=== PATIENT | male | born 1980 | race American Indian/Alaskan Native ===

== ENCOUNTER 2017-07-10 12:04 | Emergency (ER) | payer SELFPAY ==
[2017-07-10] MEDS ORDERED: PERCOCET 5/325 PO ONE ×2 (15:54→17:00)
[2017-07-10] MEDS ORDERED: FLEXERIL PO ONE (15:54)
--- NOTE | 2017-07-10 15:54 | Emergency Department Report ---
ED Back Pain/Injury HPI - General Chief Complaint: Back Pain/Injury Stated Complaint: BACK PAIN Time Seen by Provider: 07/10/17 15:29 Source: patient, family Mode of arrival: Ambulatory Limitations: No Limitations - History of Present Illness Initial Comments: Patient here complaining of lower back pain since last night. He said the pain is 8 out of 10 and feels sharp. She has a history of lower back injury with back pain and says he has back pain on and off yesterday he was doing some work and he think he reinjured his back. Denies any nausea vomiting, fever chills, urinary burning, frequency or urgency. Denies numbness hurting into extremities or loss of bowel or bladder function. He is also complaining of lump to his lower back that has been ongoing for 2 years without any medical attention. He said he took [id number] pain medication but it did not help his pain. MD Complaint: back pain -: Last night Similar Symptoms Previously: Yes Place: home Radiation: none Severity: severe Severity scale (0 -10): 8 Quality: sharp Consistency: constant Improves With: immobilization Worsens With: walking Context: turning/twisting, bending Associated Symptoms: other (Lump lower back). denies: confusion, weakness, chest pain, numbness, difficulty walking, cough, difficulty urinating, diaphoresis, incontinence, fever/chills, constipation, headaches, abdominal pain , loss of appetite, malaise, nausea/vomiting, rash, seizure, shortness of breath , syncope Treatments Prior to Arrival: NSAIDS - Related Data Previous Rx's Medication Instructions Recorded Last Taken Type Cyclobenzaprine [Flexeril] 10 mg PO Q8H PRN #15 tablet 07/10/17 Unknown Rx traMADol [Ultram] 50 mg PO Q6HR PRN #20 tablet 07/10/17 Unknown Rx Allergies Allergy/AdvReac Type Severity Reaction Status Date / Time No Known Allergies Allergy Unverified 07/10/17 12:40 ED Review of Systems ROS: Stated complaint: BACK PAIN Other details as noted in HPI Comment: All other systems reviewed and negative Constitutional: no symptoms reported Respiratory: no symptoms reported Cardiovascular: denies: chest pain, palpitations, dyspnea on exertion, orthopnea , edema, syncope, paroxysmal nocturnal dyspnea Gastrointestinal: denies: abdominal pain, nausea, vomiting, diarrhea, constipation, hematemesis, melena, hematochezia Genitourinary: denies: urgency, dysuria, frequency, hematuria, discharge, testicular pain, testicular mass Musculoskeletal: back pain. denies: joint swelling, arthralgia, myalgia Skin: denies: rash Neurological: denies: headache, weakness, numbness, paresthesias, confusion, abnormal gait, vertigo ED Past Medical Hx - Past Medical History Previous Medical History?: Yes Hx Hypertension: Yes Hx Diabetes: Yes Additional medical history: Back injury/Pain - Surgical History Past Surgical History?: No - Family History Family history: diabetes, hypertension - Social History Smoking Status: Never Smoker Substance Use Type: None - Medications Home Medications: Home Medications Medication Instructions Recorded Confirmed Last Taken Type Cyclobenzaprine [Flexeril] 10 mg PO Q8H PRN #15 tablet 07/10/17 Unknown Rx traMADol [Ultram] 50 mg PO Q6HR PRN #20 tablet 07/10/17 Unknown Rx ED Physical Exam - General Limitations: No Limitations General appearance: alert, in no apparent distress - Head Head exam: Present: atraumatic, normocephalic, normal inspection - Eye Eye exam: Present: normal appearance, PERRL, EOMI. Absent: conjunctival injection, nystagmus, periorbital swelling, periorbital tenderness Pupils: Present: normal accommodation - ENT ENT exam: Present: normal exam, normal orophraynx, mucous membranes moist, TM's normal bilaterally, normal external ear exam - Neck Neck exam: Present: normal inspection, full ROM. Absent: tenderness, lymphadenopathy - Respiratory Respiratory exam: Present: normal lung sounds bilaterally. Absent: respiratory distress, wheezes, rales, rhonchi, stridor, chest wall tenderness, accessory muscle use, decreased breath sounds, prolonged expiratory - Cardiovascular Cardiovascular Exam: Present: regular rate, normal rhythm, normal heart sounds - GI/Abdominal GI/Abdominal exam: Present: soft, normal bowel sounds, hernia (umbilical, reducible). Absent: distended, tenderness, guarding, rebound, rigid, diminished bowel sounds, hyperactive bowel sounds, hypoactive bowel sounds, organomegaly, mass, bruit, pulsatile mass - Extremities Exam Extremities exam: Present: normal inspection, full ROM, normal capillary refill. Absent: tenderness, pedal edema, joint swelling, calf tenderness - Back Exam Back exam: Present: normal inspection, full ROM, tenderness, vertebral tenderness (Lumbar spine), other (small hyperpigmented , circular area to distal l spine. NTTP. soft). Absent: CVA tenderness (L), muscle spasm, paraspinal tenderness, rash noted - Neurological Exam Neurological exam: Present: alert, oriented X3, normal gait, reflexes normal. Absent: motor sensory deficit - Expanded Neurological Exam Expanded Neurological exam: Absent: innattentive, memory loss-remote event, memory loss- recent event, ataxia, receptive aphasia, expressive aphasia, total aphasia, tremor, protecting the airway Patient oriented to: Present: person, place, time Speech: Present: fluid speech Cranial nerves: EOM's Intact: Normal, Gag Reflex: Normal, Tongue Deviation: Normal, Nystagmus: Normal, Facial Sensation: Normal Cerebellar function: Romberg: Normal Upper motor neuron: Pronator Drift: Normal, Sensory Extinction: Normal Sensory exam: Upper Extremity Light Touch: Normal, Upper Extremity Temperature: Normal, UE 2 Point Discrimination: Normal, Lower Extremity Light Touch: Normal, Lower Extremity Pin Prick: Normal, LE 2 Point Discrimination: Normal Motor strength exam: RUE: 5, LUE: 5, RLE: 5, LLE: 5 DTR: bicep (R): 2+, bicep (L): 2+, tricep (R): 2+, tricep (L): 2+, knee (R): 2+ , knee (L): 2+, ankle (R): 2+, ankle (L): 2+ Best Eye Response ([place]): (4) open spontaneously Best Motor Response ([place]): (6) obeys commands Best Verbal Response ([place]): (5) oriented [place] Total: 15 - Psychiatric Psychiatric exam: Present: normal affect, normal mood - Skin Skin exam: Present: warm, dry, intact, other (distal lumbar spine area with soft , circular, hyperpigmented area. NTTP. No drainge or entrance wound. Chronic) ED Course Vital Signs 07/10/17 07/10/17 07/10/17 12:38 16:23 17:03 Temperature 98 F Pulse Rate 75 Respiratory 16 18 16 Rate Blood Pressure 158/83 O2 Sat by Pulse 99 Oximetry - Reevaluation(s) Reevaluation #1: 07/10/17 18:30 Given Percocet 5/325 2 tablets and Flexeril 10 mg by mouth for lower back pain with positive relief. ED Medical Decision Making - Lab Data Lab Results 07/10/17 Range/Units 16:05 Urine Color Yellow (Yellow) Urine Turbidity Clear (Clear) Urine pH 6.0 (5.0-7.0) Ur Specific [place] 1.014 (1.003-1.030) Urine Protein <15 mg/dl (Negative) mg/dL Urine Glucose (UA) Neg (Negative) mg/dL Urine Ketones Neg (Negative) mg/dL Urine Blood Neg (Negative) Urine Nitrite Neg (Negative) Urine Bilirubin Neg (Negative) Urine Urobilinogen < 2.0 (<2.0) mg/dL Ur Leukocyte Esterase Neg (Negative) Urine WBC (Auto) 1.0 (0.0-6.0) /HPF Urine RBC (Auto) 2.0 (0.0-6.0) /HPF U Epithel Cells (Auto) < 1.0 (0-13.0) /HPF - Radiology Data Radiology results: report reviewed CT scan lumbar spine revealed there is multilevel anterior endplate osteophyte formation paraspinous soft tissue are unremarkable. The lumbar vertebral bodies have normal height and alignment and lumbar lordosis is preserved. Multilevel lumbar spine degenerative disc disease. Also some circumferential disc bulge in with Faucet and ligamentum flavum hypertrophy to various levels of lumbar spine. Final impression patient will multilevel degenerative disc and faucet disease. - Medical Decision Making ED course: Patient here complaining of lower back pain and reported that he injured his back previously and he gets back pain from time to time but he was doing some work and started having back pain lower back area that started last night. He said he had taken Motrin without any relief. CT scan of the lumbar spine reveal that patient has multilevel degenerative disc and facet disease. Patient also has small lump that is soft and round to his distal lumbar area and he said this has been there for 2 years. He has not seek any medical attention for this or his back problems. I discussed diagnosis and treatment plan the patient and he voiced understanding. Given and Percocet 5/325 2 tablets of Flexeril 10 mg by mouth and emergency room which relieved this pain. He has no neurological abnormality and back exam is tender to lumbar vertebral spine. I discussed the patient that he will need to follow up with dermatology regarding in lump to his lumbar spine area and that he will probably need a biopsy. I also discussed the patient that he will need to follow-up with orthopedic doctor regarding chronic back problem. Urinalysis discussed the patient. There are no signs of any bacterial infection. We'll ambulate and in no acute distress at present. He reports that he is feeling better and discharged home in stable condition. Critical care attestation.: If time is entered above; I have spent that time in minutes in the direct care of this critically ill patient, excluding procedure time. ED Disposition Clinical Impression: Degenerative disc disease, lumbar, Bulge of lumbar disc without myelopathy, Facet arthropathy, lumbar, Palpable mass of lower back Lumbar back pain Qualifiers: Chronicity: chronic Back pain laterality: bilateral Sciatica presence: without sciatica Qualified Code(s): M54.5 - Low back pain Disposition: - TO HOME OR SELFCARE Is pt being admited?: No Does the pt Need Aspirin: No Condition: Stable Instructions: Lumbar Disc Herniation (ED), Superficial Mass Needle Biopsy (ED) , Back Pain (ED), Core Strengthening Exercises (GEN), Degenerative Disc Disease (ED) Additional Instructions: follow-up with orthopedic doctor as instructed regarding chronic lower back pain Follow-up with dermatology as instructed If you are unable to follow-up with dermatology or orthopedic doctor, he can follow up with [facility] and be referred as needed. You have a mass that is chronic on your lower back and will need to follow up with [facility] for skin biopsy. See discharge instruction on for exercises Do not take Flexeril while driving or operating heavy machinery with this medication causes drowsiness Prescriptions: Cyclobenzaprine [Flexeril] 10 mg PO Q8H PRN #15 tablet PRN Reason: Muscle Spasm traMADol [Ultram] 50 mg PO Q6HR PRN #20 tablet PRN Reason: Pain Referrals: PRIMARY CARE, [Primary Care Provider] - 2-3 Days AMRIK WOLFE MD [Staff Physician] - 2-3 Days AJAY ATKINS MD [Staff Physician] - 2-3 Days [facility] [Outside] - 2-3 Days Forms: Accompanied Note, Work/School Release Form(ED)
[2017-07-10 16:38] LABS: Bilirubin,Urine NEG (Negative); Blood,Urine NEG (Negative); Ketones,Urine NEG (Negative); Leukocyte Esterase,Urine NEG (Negative); Nitrite,Urine NEG (Negative); Protein,Urine <15 mg/dL mg/dL (Negative); Urobilinogen,Urine < 2.0 mg/dL (<2.0)
--- NOTE | 2017-07-10 18:15 | Cat Scan Report ---
FINAL REPORT EXAM: CT LUMBAR SPINE WO CON HISTORY: back pain with vertebral tenderness/painful knot TECHNIQUE: Helical images of the lumbar spine were obtained. Images are reconstructed in the sagittal and coronal planes. PRIORS: None. FINDINGS: The lumbar vertebral bodies have normal height and alignment and lumbar lordosis is preserved. There is multilevel anterior endplate osteophyte formation. The paraspinous soft tissues are unremarkable. T 12-L1: No disc bulge or protrusion. The facet joints appear well preserved. No spinal or foraminal stenosis. L1-L2: No disc bulge or protrusion. There is mild bilateral facet and ligamentum flavum hypertrophy. No spinal or foraminal stenosis. L2-L3: There is a large circumferential disc bulge. Mild bilateral facet and ligamentum flavum hypertrophy. No spinal or foraminal stenosis. L3-L4: There is a large circumferential disc bulge. Moderate bilateral facet and ligamentum flavum hypertrophy. No spinal or foraminal stenosis. L4-L5: There is a large circumferential disc bulge. The facet joints appear well preserved. No spinal or foraminal stenosis. L5-S1: There is a small broad-based posterior disc bulge. Moderate bilateral facet and ligamentum flavum hypertrophy. No spinal or foraminal stenosis. IMPRESSION: Multilevel degenerative disc and facet disease.
[2017-07-10 19:03] VITALS: BP 130/79
== END 2017-07-10 19:03 | disposition home or self-care (01) ==
LOC: ED 12:04
DX: M51.36 Other intervertebral disc degeneration, lumbar region (principal); M12.80 Other specific arthropathies, not elsewhere classified, unspecified site; R22.2 Localized swelling, mass and lump, trunk; I10 Essential (primary) hypertension; E11.9 Type 2 diabetes mellitus without complications
CPT/HCPCS: 72131; 81001; 87086

== ENCOUNTER 2017-10-13 12:32 | Emergency (ER) | payer OTHER ==
[2017-10-13 12:47] VITALS: BP 152/89
[2017-10-13 13:34] LABS: Bilirubin,Urine NEG (Negative); Blood,Urine NEG (Negative); Ketones,Urine 80 mg/dL (Negative); Leukocyte Esterase,Urine TR (Negative); Mucus,Urine FEW /HPF; Nitrite,Urine NEG (Negative); Protein,Urine <15 mg/dL mg/dL (Negative); Urobilinogen,Urine < 2.0 mg/dL (<2.0)
[2017-10-13 13:43] LABS: Anion Gap 35 mmol/L; BUN/Creatinine Ratio 14; Blood Urea Nitrogen 13 mg/dL (9-20); Calcium 10.1 mg/dL (8.4-10.2); Carbon Dioxide 15 mmol/L (22-30); Chloride 87.4 mmol/L (98-107); Glucose 440 mg/dL (75-100); Potassium 4.7 mmol/L (3.6-5.0); Sodium 133 mmol/L (137-145)
[2017-10-13 13:53] LABS: Basophils % (Auto) 0.9 % (0.0-1.8); Eosinophils % (Auto) 1.2 % (0.0-4.3); Hematocrit 44.8 % (35.5-45.6); Hemoglobin 14.8 gm/dl (11.8-15.2); Mean Corpuscular HGB Conc 33 % (32-34); Mean Corpuscular Hemoglobin 30 pg (28-32); Mean Corpuscular Volume 92 fl (84-94); Platelet Count 290 K/mm3 (140-440); Red Blood Count 4.88 M/mm3 (3.65-5.03); Red Cell Distribution Width 13.9 % (13.2-15.2); White Blood Count 11.4 K/mm3 (4.5-11.0)
[2017-10-13] MEDS ORDERED: NACL 0.9% 1000 ML 1,000 ML IV ONE ×2 (14:23→15:00)
[2017-10-13] MEDS ORDERED: DECADRON IV ONE (14:25)
[2017-10-13] MEDS ORDERED: D50W (25GM) Syringe IV PRN (14:25)
--- NOTE | 2017-10-13 14:47 | Emergency Department Report ---
ED General Adult HPI - General Chief complaint: Hyperglycemia Stated complaint: HIGH BLOOD SUGAR Time Seen by Provider: 10/13/17 13:50 Source: patient Mode of arrival: Ambulatory Limitations: No Limitations - History of Present Illness Initial comments: Patient is a 37-year-old male past history of diabetes who presents with sore throat and weakness. He has been out of his metformin for the last several months. He states that he feels weak and he has a sore throat. Patient sore throat he has a pain 6 out of 10 nothing makes it better or worse is a sore type of pain. It doesn't radiate and nothing makes it better or worse. Patient has been on insulin before for his diabetes but he states since [place] he has not been able to get any care because he has no insurance. - Related Data Previous Rx's Medication Instructions Recorded Last Taken Type Cyclobenzaprine [Flexeril] 10 mg PO Q8H PRN #15 tablet 07/10/17 Unknown Rx traMADol [Ultram] 50 mg PO Q6HR PRN #20 tablet 07/10/17 Unknown Rx Allergies Allergy/AdvReac Type Severity Reaction Status Date / Time No Known Allergies Allergy Verified 10/13/17 12:42 ED Review of Systems ROS: Stated complaint: HIGH BLOOD SUGAR Other details as noted in HPI Constitutional: denies: chills, fever Eyes: denies: eye pain, eye discharge, vision change ENT: throat pain. denies: ear pain Respiratory: denies: cough, shortness of breath, wheezing Cardiovascular: denies: chest pain, palpitations Endocrine: no symptoms reported Gastrointestinal: denies: abdominal pain, nausea, diarrhea Genitourinary: frequency. denies: urgency, dysuria Musculoskeletal: denies: back pain, joint swelling, arthralgia Skin: denies: rash, lesions Neurological: denies: headache, weakness, paresthesias Psychiatric: denies: anxiety, depression Hematological/Lymphatic: denies: easy bleeding, easy bruising ED Past Medical Hx - Past Medical History Previous Medical History?: Yes Hx Hypertension: Yes Hx Diabetes: Yes Additional medical history: Back injury/Pain - Surgical History Past Surgical History?: No - Social History Smoking Status: Former Smoker Substance Use Type: Marijuana - Medications Home Medications: Home Medications Medication Instructions Recorded Confirmed Last Taken Type Cyclobenzaprine [Flexeril] 10 mg PO Q8H PRN #15 tablet 07/10/17 Unknown Rx traMADol [Ultram] 50 mg PO Q6HR PRN #20 tablet 07/10/17 Unknown Rx ED Physical Exam - General Limitations: No Limitations General appearance: alert, in no apparent distress - Head Head exam: Present: atraumatic, normocephalic - Eye Eye exam: Present: normal appearance - ENT ENT exam: Present: mucous membranes moist - Neck Neck exam: Present: normal inspection - Respiratory Respiratory exam: Present: normal lung sounds bilaterally. Absent: respiratory distress - Cardiovascular Cardiovascular Exam: Present: regular rate, normal rhythm. Absent: systolic murmur, diastolic murmur, rubs, gallop - GI/Abdominal GI/Abdominal exam: Present: soft, normal bowel sounds - Rectal Rectal exam: Present: deferred - Extremities Exam Extremities exam: Present: normal inspection - Back Exam Back exam: Present: normal inspection - Neurological Exam Neurological exam: Present: alert, oriented X3 - Psychiatric Psychiatric exam: Present: normal affect, normal mood - Skin Skin exam: Present: warm, dry, intact, normal color. Absent: rash ED Course Vital Signs 10/13/17 10/13/17 12:42 13:09 Temperature 99.1 F Pulse Rate 91 H Respiratory 16 20 Rate Blood Pressure 152/89 O2 Sat by Pulse 98 98 Oximetry ED Medical Decision Making - Lab Data Result diagrams: 10/13/17 13:04 10/13/17 13:04 Lab Results 10/13/17 10/13/17 10/13/17 Range/Units 12:43 13:03 13:04 WBC 11.4 H (4.5-11.0) K/mm3 RBC 4.88 (3.65-5.03) M/mm3 Hgb 14.8 (11.8-15.2) gm/dl Hct 44.8 (35.5-45.6) % MCV 92 (84-94) fl MCH 30 (28-32) pg MCHC 33 (32-34) % RDW 13.9 (13.2-15.2) % Plt Count 290 (140-440) K/mm3 Lymph % (Auto) 20.8 (13.4-35.0) % [place] % (Auto) 9.0 H (0.0-7.3) % Eos % (Auto) 1.2 (0.0-4.3) % Baso % (Auto) 0.9 (0.0-1.8) % Lymph # 2.4 (1.2-5.4) K/mm3 [place] # 1.0 H (0.0-0.8) K/mm3 Eos # 0.1 (0.0-0.4) K/mm3 Baso # 0.1 (0.0-0.1) K/mm3 Seg Neutrophils % 68.1 (40.0-70.0) % Seg Neutrophils # 7.8 H (1.8-7.7) K/mm3 VBG pH (7.320-7.420) Sodium (137-145) mmol/L Potassium (3.6-5.0) mmol/L Chloride (98-107) mmol/L Carbon Dioxide (22-30) mmol/L Anion Gap mmol/L BUN (9-20) mg/dL Creatinine (0.8-1.5) mg/dL Estimated GFR ml/min BUN/Creatinine Ratio % Glucose (75-100) mg/dL POC Glucose 384 H (70-105) Calcium (8.4-10.2) mg/dL Urine Color Straw (Yellow) Urine Turbidity Clear (Clear) Urine pH 5.0 (5.0-7.0) Ur Specific [place] 1.022 (1.003-1.030) Urine Protein <15 mg/dl (Negative) mg/dL Urine Glucose (UA) >=500 (Negative) mg/dL Urine Ketones 80 (Negative) mg/dL Urine Blood Neg (Negative) Urine Nitrite Neg (Negative) Urine Bilirubin Neg (Negative) Urine Urobilinogen < 2.0 (<2.0) mg/dL Ur Leukocyte Esterase Tr (Negative) Urine WBC (Auto) 8.0 H (0.0-6.0) /HPF Urine RBC (Auto) 2.0 (0.0-6.0) /HPF U Epithel Cells (Auto) 1.0 (0-13.0) /HPF Urine Mucus Few /HPF 10/13/17 10/13/17 Range/Units 13:04 13:04 WBC (4.5-11.0) K/mm3 RBC (3.65-5.03) M/mm3 Hgb (11.8-15.2) gm/dl Hct (35.5-45.6) % MCV (84-94) fl MCH (28-32) pg MCHC (32-34) % RDW (13.2-15.2) % Plt Count (140-440) K/mm3 Lymph % (Auto) (13.4-35.0) % [place] % (Auto) (0.0-7.3) % Eos % (Auto) (0.0-4.3) % Baso % (Auto) (0.0-1.8) % Lymph # (1.2-5.4) K/mm3 [place] # (0.0-0.8) K/mm3 Eos # (0.0-0.4) K/mm3 Baso # (0.0-0.1) K/mm3 Seg Neutrophils % (40.0-70.0) % Seg Neutrophils # (1.8-7.7) K/mm3 VBG pH 7.273 L (7.320-7.420) Sodium 133 L (137-145) mmol/L Potassium 4.7 (3.6-5.0) mmol/L Chloride 87.4 L (98-107) mmol/L Carbon Dioxide 15 L (22-30) mmol/L Anion Gap 35 mmol/L BUN 13 (9-20) mg/dL Creatinine 0.9 (0.8-1.5) mg/dL Estimated GFR > 60 ml/min BUN/Creatinine Ratio 14 % Glucose 440 H (75-100) mg/dL POC Glucose (70-105) Calcium 10.1 (8.4-10.2) mg/dL Urine Color (Yellow) Urine Turbidity (Clear) Urine pH (5.0-7.0) Ur Specific [place] (1.003-1.030) Urine Protein (Negative) mg/dL Urine Glucose (UA) (Negative) mg/dL Urine Ketones (Negative) mg/dL Urine Blood (Negative) Urine Nitrite (Negative) Urine Bilirubin (Negative) Urine Urobilinogen (<2.0) mg/dL Ur Leukocyte Esterase (Negative) Urine WBC (Auto) (0.0-6.0) /HPF Urine RBC (Auto) (0.0-6.0) /HPF U Epithel Cells (Auto) (0-13.0) /HPF Urine Mucus /HPF - Medical Decision Making Cdx: Diabetic ketoacidosis Differential medical diagnosis: Hyperglycemia, HONK I will get CBC, CMP, VBG, urinalysis Patient's blood work shows diabetic ketoacidosis I will admit patient to the hospital and start him on insulin drip and give fluids. Discussed patient's diagnosis the patient. He states that he has had DKA before in the past. I will admit the patient to the hospitalist service. Critical Care Time: Yes (40) Critical care time in (mins) excluding proc time.: 40 Critical care attestation.: If time is entered above; I have spent that time in minutes in the direct care of this critically ill patient, excluding procedure time. Critical care time spent at patient's bedside 20 minutes Critical care time spent reviewing patients labratory findings 10 minutes Critical care time spent with family consultant 5 minutes Critical Care time spent with patient's family 5 minutes ED Disposition Clinical Impression: DKA (diabetic ketoacidoses) Qualifiers: Diabetes mellitus type: type 2 Diabetes mellitus complication detail: without coma Qualified Code(s): E11.10 - Type 2 diabetes mellitus with ketoacidosis without coma Disposition: DC-09 OP ADMIT IP TO THIS HOSP Is pt being admited?: No Does the pt Need Aspirin: No Condition: Stable Instructions: Diabetic Ketoacidosis (ED) Referrals: PRIMARY CARE, [Primary Care Provider] - 3-5 Days
--- NOTE | 2017-10-13 14:48 | History and Physical Report ---
History of Present Illness Chief complaint: My sugar is high History of present illness: 37 YO Female with DM, HTN, who presents with sore throat and weakness. He has been out of his metformin for the last several months. He states that he feels weak and he has a sore throat. Patient sore throat he has a pain 6 out of 10 nothing makes it better or worse is a sore type of pain. It doesn't radiate and nothing makes it better or worse. Patient has been on insulin before for his diabetes but he states since [place] he has not been able to get any care because he has no insurance. Pt seen and evaluated in ED and treated with insulin therapy, with normalization of serum glucose. Pt medically optimized and back to usual state of health. Pt discharged home and instructed to f/u pcp 1wk with blood glucose log. Past History Past Medical History: diabetes, hypertension Past Surgical History: No surgical history, Other (reviewed) Social history: single Family history: hypertension Medications and Allergies Allergies Allergy/AdvReac Type Severity Reaction Status Date / Time No Known Allergies Allergy Verified 10/13/17 12:42 Home Medications Medication Instructions Recorded Confirmed Last Taken Type Cyclobenzaprine [Flexeril] 10 mg PO Q8H PRN #15 tablet 07/10/17 Unknown Rx traMADol [Ultram] 50 mg PO Q6HR PRN #20 tablet 07/10/17 Unknown Rx metFORMIN [Glucophage] 500 mg PO BID #60 tablet 10/13/17 Unknown Rx metFORMIN [Glucophage] 500 mg PO BID #60 tablet 10/13/17 Unknown Rx Active Meds: Active Medications Dextrose (D50w (25gm) Syringe) 0 ml IV PRN PRN PRN Reason: Hypoglycemia Sodium Chloride (Nacl 0.9% 1000 Ml) 1,000 mls @ 999 mls/hr IV BOLUS ONE Stop: 10/13/17 15:23 Last Admin: 10/13/17 14:35 Dose: 999 mls/hr Insulin Human Regular 100 (units/ Sodium Chloride) 100 mls @ 1 mls/hr IV TITR YIFAN; 1 UNITS/HR PRN Reason: Protocol Sodium Chloride (Nacl 0.9% 1000 Ml) 1,000 mls @ 999 mls/hr IV BOLUS ONE Stop: 10/13/17 16:00 Sodium Bicarbonate (Sodium Bicarbonate) 50 meq IV ONCE ONE Stop: 12/20/17 15:01 Review of Systems Constitutional: no weight loss, no weight gain, no fever, no chills Ears, nose, mouth and throat: no ear pain, no ear discharge, no tinnitis, no decreased hearing Cardiovascular: no chest pain, no orthopnea, no palpitations, no rapid/ irregular heart beat, no edema Respiratory: no cough, no cough with sputum, no excessive sputum, no hemoptysis Gastrointestinal: no abdominal pain, no nausea, no vomiting, no diarrhea, no constipation Genitourinary Male: no dysuria, no hematuria, no flank pain, no discharge, no urinary frequency, no urinary hesitancy Rectal: no pain, no incontinence, no bleeding Musculoskeletal: no neck stiffness, no neck pain, no low back pain Integumentary: no rash, no pruritis, no redness, no sores, no wounds, no jaundice Neurological: no head injury, no transient paralysis, no paralysis, no weakness , no parathesias, no numbness Psychiatric: no anxiety, no memory loss, no change in sleep habits, no sleep disturbances Endocrine: no cold intolerance, no heat intolerance, no polyphagia Hematologic/Lymphatic: no easy bruising, no easy bleeding Allergic/Immunologic: no urticaria, no allergic rhinitis, no wheezing Exam - Constitutional Vitals: Temp Pulse Resp BP Pulse Ox 99.1 F 91 H 20 152/89 98 10/13/17 12:42 10/13/17 12:42 10/13/17 13:09 10/13/17 12:42 10/13/17 13:09 General appearance: Present: no acute distress, well-nourished - EENT Eyes: Present: PERRL ENT: hearing intact, clear oral mucosa - Neck Neck: Present: supple, normal ROM - Respiratory Respiratory effort: normal Respiratory: bilateral: CTA - Cardiovascular Heart Sounds: Present: S1 & S2. Absent: rub, click - Extremities Extremities: pulses symmetrical, No edema Peripheral Pulses: within normal limits - Abdominal General gastrointestinal: Present: soft, non-tender, non-distended, normal bowel sounds Male genitourinary: Present: normal - Integumentary Integumentary: Present: clear, warm, dry - Musculoskeletal Musculoskeletal: gait normal, strength equal bilaterally - Psychiatric Psychiatric: appropriate mood/affect, intact judgment & insight - Neurologic Neurologic: CNII-XII intact, moves all extremities Results - Labs CBC & Chem 7: 10/13/17 13:04 10/13/17 18:34 Labs: Abnormal lab results 10/13/17 10/13/17 10/13/17 Range/Units 12:43 13:03 13:04 WBC 11.4 H (4.5-11.0) K/mm3 [place] % (Auto) 9.0 H (0.0-7.3) % [place] # 1.0 H (0.0-0.8) K/mm3 Seg Neutrophils # 7.8 H (1.8-7.7) K/mm3 VBG pH (7.320-7.420) Sodium (137-145) mmol/L Chloride (98-107) mmol/L Carbon Dioxide (22-30) mmol/L Glucose (75-100) mg/dL POC Glucose 384 H (70-105) Urine WBC (Auto) 8.0 H (0.0-6.0) /HPF 10/13/17 10/13/17 Range/Units 13:04 13:04 WBC (4.5-11.0) K/mm3 [place] % (Auto) (0.0-7.3) % [place] # (0.0-0.8) K/mm3 Seg Neutrophils # (1.8-7.7) K/mm3 VBG pH 7.273 L (7.320-7.420) Sodium 133 L (137-145) mmol/L Chloride 87.4 L (98-107) mmol/L Carbon Dioxide 15 L (22-30) mmol/L Glucose 440 H (75-100) mg/dL POC Glucose (70-105) Urine WBC (Auto) (0.0-6.0) /HPF Assessment and Plan - Patient Problems (1) Diabetes Status: Acute Plan to address problem: IVF resuscitation therpay, insulin therapy, supportive care. Pt glucose normalized. Pt medically optimized and back to usual state of health. Pt counseled regarding medication noncompliance. Pt discharged home and instructed to f/u pcp 1wk, with blood glucose log.
[2017-10-13] MEDS ORDERED: SODIUM BICARBONATE IV ONE (15:00)
[2017-10-13] MEDS ORDERED: NovoLIN R 100 UNITS in NACL 0.9% 99 ML IV SCH (15:00)
[2017-10-13 15:45] LABS: Magnesium 1.9 mg/dL (1.7-2.3)
[2017-10-13 15:46] LABS: Anion Gap 34 mmol/L; BUN/Creatinine Ratio 13; Blood Urea Nitrogen 12 mg/dL (9-20); Calcium 10.2 mg/dL (8.4-10.2); Carbon Dioxide 18 mmol/L (22-30); Chloride 90.6 mmol/L (98-107); Glucose 384 mg/dL (75-100); Potassium 5.1 mmol/L (3.6-5.0); Sodium 137 mmol/L (137-145)
[2017-10-13 17:42] LABS: Anion Gap 30 mmol/L; BUN/Creatinine Ratio 14; Blood Urea Nitrogen 11 mg/dL (9-20); Calcium 9.4 mg/dL (8.4-10.2); Carbon Dioxide 17 mmol/L (22-30); Chloride 96.1 mmol/L (98-107); Glucose 203 mg/dL (75-100); Potassium 4.4 mmol/L (3.6-5.0); Sodium 139 mmol/L (137-145)
[2017-10-13] MEDS ORDERED: GLUCOPHAGE PO ONE (19:00)
[2017-10-13 19:06] LABS: Anion Gap 32 mmol/L; BUN/Creatinine Ratio 14; Blood Urea Nitrogen 11 mg/dL (9-20); Calcium 9.5 mg/dL (8.4-10.2); Carbon Dioxide 15 mmol/L (22-30); Chloride 94.5 mmol/L (98-107); Glucose 234 mg/dL (75-100); Potassium 4.9 mmol/L (3.6-5.0); Sodium 137 mmol/L (137-145)
== END 2017-10-13 19:30 | disposition admitted as inpatient to this hospital (09) ==
LOC: ED 12:32
DX: E11.10 Type 2 diabetes mellitus with ketoacidosis without coma (principal); I10 Essential (primary) hypertension; F12.10 Cannabis abuse, uncomplicated; Z87.891 Personal history of nicotine dependence
CPT/HCPCS: 36415; 80048; 81001; 82805; 82962; 83735; 84100; 85025; 96361; 96374; 96375; 99283; J1100; J7030; J1815

== ENCOUNTER 2020-01-11 09:41 | Outpatient (CLI) | payer OTHER ==
--- NOTE | 2020-01-11 11:09 | XRay Report ---
XR knee BILAT 1-2V INDICATION / CLINICAL INFORMATION: Diabetes, high blood pressure. COMPARISON: None available. FINDINGS: BONES/JOINT(S): No acute fracture or subluxation. No significant degenerative changes. No joint effus ion. No focal bone lesions. SOFT TISSUES: No significant abnormality. ADDITIONAL FINDINGS: None. Signer Name: Brennan Resendiz MD Signed: 01/11/2020 11:05 AM Workstation Name: [id number]
--- NOTE | 2020-01-11 11:09 | XRay Report ---
XR spine lumbosacral 2-3V INDICATION / CLINICAL INFORMATION: DIABETES,HIGH BLOOD PRESSURE. COMPARISON: None available. FINDINGS: BONES/JOINT(S): No acute fracture or subluxation. Mild diffuse spondylosis with small anterior and la teral osteophytes. No significant disc height loss. No focal bone lesion. SOFT TISSUES: No significant abnormality. ADDITIONAL FINDINGS: None. Signer Name: Brennan Resendiz MD Signed: 01/11/2020 11:05 AM Workstation Name: [id number]
== END 2020-01-11 09:42 | disposition home or self-care (01) ==
LOC: XRAY 09:41
PROVIDERS: ATTEND Internal Medicine
DX: E11.10 Type 2 diabetes mellitus with ketoacidosis without coma (principal); I10 Essential (primary) hypertension
CPT/HCPCS: 72100